=== PATIENT | female | born 1990 | race Asian ===

== ENCOUNTER 2017-06-20 00:30 | Inpatient (IN) | payer SELFPAY ==
[~2017-06-20] VITALS: Ht 160 cm; Wt 66.0 kg
[2017-06-20] MEDS ORDERED: OMEG1CAP21 PO (00:46)
[2017-06-20 00:52] VITALS: BP 109/63
[2017-06-20] MEDS: LACTATED RINGERS 1,000 ML IV SCH ×2 (02:19→05:12)
[2017-06-20 02:44] LABS: APPEARANCE,URINE CLEAR (CLEAR); BILIRUBIN,URINE NEGATIVE (NEGATIVE); BLOOD, URINE NEGATIVE (NEGATIVE); COLOR,URINE YELLOW (YELLOW); LEUKOCYTE ESTERASE ,URINE 2+ (NEGATIVE); NITRITE, URINE NEGATIVE (NEGATIVE); UGLUCOSE NEGATIVE (NEGATIVE)
[2017-06-20 03:00] LABS: ALBUMIN 2.5 g/dL (3.4-5.0); ANION GAP 14.1 (8-16); CARBON DIOXIDE 23.6 mmol/L (21-32); CREATININE 0.5 mg/dL (0.6-1.3); POTASSIUM 3.7 mmol/L (3.5-5.1); TOTAL BILIRUBIN 0.4 mg/dL (0.0-1.0)
[2017-06-20 03:13] LABS: RBC,URINE 0-5 (RARE) /HPF (0-5); WBC,URINE 0-5 (RARE) /HPF (0-5)
[2017-06-20 03:29] LABS: BASOPHILS % (AUTO) 0.2 % (0.0-2.0); EOSINOPHILS % (AUTO) 0.5 % (0.0-4.0); HEMATOCRIT 30.5 % (36-48); HEMOGLOBIN 10.1 g/dL (12.0-16.0); LYMPHOCYTES # (AUTO) 1.3 K/uL (2.5-16.5); LYMPHOCYTES % (AUTO) 14.3 % (20.5-51.1); MEAN CORPUSCULAR HEMOGLOBIN 26 pg (27-31); MEAN CORPUSCULAR HGB CONC 33 g/dL (33-37); MEAN CORPUSCULAR VOLUME 79.2 fL (80-94); MONOCYTES # (AUTO) 0.5 K/uL (0.8-1.0); MONOCYTES % (AUTO) 5.2 % (1.7-9.3); NEUTROPHILS # (AUTO) 7.1 K/uL (1.8-7.7); NEUTROPHILS % (AUTO) 79.8 % (42.2-75.2); PLATELET COUNT (AUTO) 208 K/uL (140-450); RED BLOOD CELL COUNT(AUTO) 3.85 MIL/uL (4.20-5.40); RED CELL DISTRIBUTION WIDTH 14.7 % (11.6-13.7); WHITE BLOOD COUNT (AUTO) 8.8 K/uL (4.8-10.8)
[2017-06-20] MEDS ORDERED: ceFAZolin 1,000 MG VIAL ONE (05:21)
[2017-06-20] MEDS ORDERED: OXYTOCIN 10 UNITS/ML VIAL ONE ×3 (05:55→15:44)
[2017-06-20] MEDS ORDERED: MIDAZOLAM 2 MG/2 ML VIAL ONE (05:55)
[2017-06-20] MEDS ORDERED: fentaNYL 0.05 MG/ML VIAL ONE (05:56)
[2017-06-20] MEDS ORDERED: MORPHINE PRES FREE 10 MG/10 ML AMP IV ONE (05:56)
[2017-06-20] MEDS ORDERED: METHYLERGONOVINE 0.2 MG/ML AMP ONE (05:58)
[2017-06-20] MEDS ORDERED: TRIAMCINOLONE 40 MG/ML 5ML VIAL ONE (05:58)
[2017-06-20] MEDS ORDERED: BUPIVACAINE-MPF 0.5% 10 ML VIAL INJ ONE (06:05)
[2017-06-20] MEDS ORDERED: HYDROcodone/APAP 5/325 MG 1 TAB TAB PO PRN (06:05)
[2017-06-20] MEDS ORDERED: TRIMETHOBENZAMIDE 200 MG/2 ML SYR IM PRN (06:05)
[2017-06-20] MEDS ORDERED: TEMAZEPAM 15 MG CAP PO PRN (06:05)
[2017-06-20] MEDS ORDERED: SIMETHICONE 80 MG TAB.CHEW PO PRN (06:05)
[2017-06-20] MEDS ORDERED: METHYLERGONOVINE 0.2 MG/ML AMP IM PRN (06:05)
[2017-06-20] MEDS ORDERED: IBUPROFEN 800 MG TAB PO PRN (06:05)
[2017-06-20] MEDS ORDERED: oxyCODONE/APAP 5/325 MG 1 TAB TAB PO PRN (06:05)
[2017-06-20] MEDS ORDERED: MEASLES, MUMPS, AND RUBELLA 1 VIAL SQVAC PRN (06:05)
[2017-06-20] MEDS ORDERED: OXYTOCIN 20 UNITS in LACTATED RINGERS 1,000 ML IV SCH (06:32)
[2017-06-20] MEDS ORDERED: diphenhydrAMINE 50 MG/ML VIAL IVP PRN ×2 (06:35)
[2017-06-20] MEDS ORDERED: NALOXONE 0.4 MG/ML VIAL IVP PRN ×3 (06:35)
[2017-06-20] MEDS ORDERED: MEPERIDINE 25 MG/ML SYR IVP PRN (06:35)
[2017-06-20] MEDS ORDERED: HYDROmorphone PFS 2 MG/ML SYR IVP PRN (06:35)
[2017-06-20] MEDS ORDERED: NALBUPHINE 10 MG/ML AMP IVP PRN (06:35)
[2017-06-20] MEDS ORDERED: ONDANSETRON 4 MG/2 ML VIAL IVP PRN ×2 (06:35)
[2017-06-20] MEDS ORDERED: ONDANSETRON 4 MG/2 ML VIAL ONE (06:36)
[2017-06-20] MEDS ORDERED: diphenhydrAMINE 50 MG/ML VIAL ONE (06:37)
[2017-06-20] MEDS ORDERED: OXYTOCIN 20 UNITS/LR PREMIX 1,000 ML IV ONE (06:37)
--- NOTE | 2017-06-20 07:05 | NUR ---
PATIENT HAS BEEN SCREENED AND CATEGORIZED LOW NUTRITION RISK. PATIENT WILL BE SEEN WITHIN 7 DAYS OF ADMISSION. 06/26/17 JOSEPHINE CISNEROS MS, RDN
[2017-06-20 09:54] LABS: RAPID PLASMA REAGIN NON-REACTIVE (Non Reactiv)
[2017-06-20] MEDS: KETOROLAC 30 MG/ML VIAL IM/IVP SCH (15:52)
[2017-06-20] MEDS: OXYTOCIN 20 UNITS in LACTATED RINGERS 1,000 ML IV SCH (15:52)
[2017-06-20] MEDS: DOCUSATE SOD/SENNA 50/8.6 MG 1 TAB PO SCH (21:00)
[2017-06-21] MEDS: OXYTOCIN 20 UNITS in LACTATED RINGERS 1,000 ML IV SCH (00:02)
[2017-06-21 07:17] LABS: BASOPHILS % (AUTO) 0.1 % (0.0-2.0); HEMATOCRIT 30.2 % (36-48); HEMOGLOBIN 9.9 g/dL (12.0-16.0); LYMPHOCYTES # (AUTO) 0.9 K/uL (2.5-16.5); MEAN CORPUSCULAR HEMOGLOBIN 26 pg (27-31); MEAN CORPUSCULAR HGB CONC 33 g/dL (33-37); MEAN CORPUSCULAR VOLUME 78.5 fL (80-94); MONOCYTES # (AUTO) 0.4 K/uL (0.8-1.0); MONOCYTES % (AUTO) 3.6 % (1.7-9.3); NEUTROPHILS # (AUTO) 10.1 K/uL (1.8-7.7); NEUTROPHILS % (AUTO) 88.3 % (42.2-75.2); PLATELET COUNT (AUTO) 186 K/uL (140-450); RED BLOOD CELL COUNT(AUTO) 3.84 MIL/uL (4.20-5.40); RED CELL DISTRIBUTION WIDTH 15.4 % (11.6-13.7); WHITE BLOOD COUNT (AUTO) 11.4 K/uL (4.8-10.8)
[2017-06-21] MEDS: KETOROLAC 30 MG/ML VIAL IM/IVP SCH (08:11)
[2017-06-21] MEDS: DOCUSATE SOD/SENNA 50/8.6 MG 1 TAB PO SCH (20:54)
[2017-06-22] MEDS: DOCUSATE SOD/SENNA 50/8.6 MG 1 TAB PO SCH (21:06)
== END 2017-06-23 14:55 | disposition home or self-care (01) | DRG 766 ==
LOC: MFCC 00:30
PROVIDERS: ADMIT Obstetrics & Gynecology; ATTEND Obstetrics & Gynecology
PROC: 10D00Z1 Extraction of Products of Conception, Low, Open Approach (ICD-10-PCS; principal; 2017-06-21)
DX: O60.23X0 Term delivery with preterm labor, third trimester, not applicable or unspecified (principal); K64.9 Unspecified hemorrhoids; O75.89 Other specified complications of labor and delivery; Z37.0 Single live birth; Z28.21 Immunization not carried out because of patient refusal; Z3A.39 39 weeks gestation of pregnancy
CPT/HCPCS: 36415; 80053; 81001; 85025; 86592; 86886; 86900; 86901; 87086; J0690; J1200; J1885; J2210; J2250; J2270; J2405; J2590; J3010; J3301; J3490; J7060; J7120